=== PATIENT | female | born 1970 | race Two or more races ===

== ENCOUNTER → 2018-08-09 | Outpatient (CLI) | payer OTHER ==
[~2018-08-09] MED LIST: DOCU240C31 PO; FERR159T3 PO; IBUP-1222 PO; IBUP200T64 PO; NITR100C56 PO; OXYC-302 PO
== END | disposition home or self-care (01) ==
LOC: CFH 10:33
PROVIDERS: ATTEND Nurse Practitioner Family
DX: Z12.31 Encounter for screening mammogram for malignant neoplasm of breast (principal)
CPT/HCPCS: 77067

== ENCOUNTER 2019-10-19 19:31 | Emergency (ER) | payer OTHER ==
[~2019-10-19] VITALS: Ht 160 cm; Wt 63.4 kg
[2019-10-19 19:37] VITALS: BP 135/74
--- NOTE | 2019-10-19 20:09 | NUR ---
Xray awaiting CT C-Spine results for clearance
[2019-10-19] MEDS ORDERED: DIAZEPAM 5 MG TABLET ONE (20:54)
[2019-10-19] MEDS ORDERED: KETOROLAC 30 MG/1 ML ONE (20:55)
[2019-10-19] MEDS ORDERED: KETOROLAC 30 MG/1 ML IM ONE (21:00)
[2019-10-19] MEDS ORDERED: DIAZEPAM 5 MG TABLET PO ONE (21:00)
== END 2019-10-19 22:08 | disposition home or self-care (01) ==
LOC: ED 21:26
DX: S16.1XXA Strain of muscle, fascia and tendon at neck level, initial encounter (principal); S29.012A Strain of muscle and tendon of back wall of thorax, initial encounter; V49.49XA Driver injured in collision with other motor vehicles in traffic accident, initial encounter; Z90.710 Acquired absence of both cervix and uterus; Y93.89 Activity, other specified; Y92.410 Unspecified street and highway as the place of occurrence of the external cause; Y99.8 Other external cause status
CPT/HCPCS: 72072; 72125; 96372; 99284; J1885

== ENCOUNTER → 2021-03-13 | Outpatient (CLI) | payer OTHER ==
[~2021-03-13] MED LIST changes: -OXYC-302 PO; +OXYC1TAB14 PO
== END | disposition home or self-care (01) ==
LOC: CFH 16:21
PROVIDERS: ATTEND Nurse Practitioner Family
DX: Z12.31 Encounter for screening mammogram for malignant neoplasm of breast (principal)
CPT/HCPCS: 77063; 77067